=== PATIENT | female | born 1960 | race American Indian/Alaskan Native ===

== ENCOUNTER 2018-02-07 11:48 | Emergency (ER) | payer SELFPAY ==
[2018-02-07 12:07] VITALS: BP 155/94
--- NOTE | 2018-02-07 13:46 | Emergency Department Report ---
ED Rash HPI - HPI Chief Complaint: Skin Rash Stated Complaint: ALLERGIC REACTION Time Seen by Provider: 02/07/18 13:26 Duration: 3 Days Location: Lower Extremities (left foot) Suspected Cause: Unknown Rash Symptoms: Yes Itching, Yes Blistering, No Facial Swelling, No Tongue/Oral Swelling, No Breathing Difficulties, No Choking Sensation, No Wheezing/Dyspnea, No Peeling, No Fever, No Lightheaded, No Malaise, No Myalgias Other History: This is a 57-year-old [place] female who presents with blisters to left foot for 3 days. Patient admits to past history of similar symptoms and seen by ankle and foot doctor. No past medical history. 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 Patient does not remember name of tree. Patient states she has been wearing flip-flops and potentially infected left foot. Presently there are multiple blisters to left second through fifth toes with weeping. Patient states blisters started leaking 2 days ago. She has been soaking in iodine and green powder as advised by ankle and foot doctor. Patient states symptoms are getting worse. She denies fever, swelling, and numbness or tingling. ED Review of Systems ROS: Stated complaint: ALLERGIC REACTION Other details as noted in HPI Constitutional: denies: chills, fever Respiratory: denies: cough, shortness of breath, wheezing Cardiovascular: denies: chest pain, palpitations Gastrointestinal: denies: abdominal pain, nausea, diarrhea Skin: lesions (blisters to left foot). denies: rash Neurological: denies: headache, weakness, paresthesias Psychiatric: denies: anxiety, depression ED Past Medical Hx - Past Medical History Previous Medical History?: No - Surgical History Past Surgical History?: No - Social History Smoking Status: Current Some Day Smoker Substance Use Type: None, Alcohol - Medications Home Medications: Home Medications Medication Instructions Recorded Confirmed Last Taken Type Triamcinolone 0.1% [Kenalog 0.1% 1 applic TP TID 14 Days tube 03/15/15 Unknown Rx CREAM] Griseofulvin Ultramicrosize 250 mg PO BID #60 tablet 02/07/18 Unknown Rx [Silvia-Peg] Sulfamethoxazole/Trimethoprim 1 each PO BID #20 tablet 02/07/18 Unknown Rx [Bactrim DS TAB] Rash Exam - Exam General: Vital signs noted. No distress. Alert and acting appropriately. HEENT: No Periorbital Edema, No Conjuctival Injection, No Chemosis, No Perioral Edema, No Tongue Edema, No Uvular Edema, No Compromised Airway, No Drooling Lungs: Yes Good Air Exchange (Normal Breath Sounds), No Wheezes, No Ronchi, No Stridor, No Cough, No Labored Respirations, No Retractions, No Use of Accessory Muscles, No Other Abnormal Lung Sounds Heart: Yes Regular, No Murmur Skin: Yes Bulla(e) (1 cm bulla to distal second through fourth MTP, active clear discharge, tenderness, and swelling), Yes Weeping, Yes Tenderness, Yes Erythema, Yes Edema, No Urticarial Rash, No Maculopapular Rash, No Morbilliform rash, No Excoriations, No Encrustations ED Course Vital Signs 02/07/18 12:04 Temperature 98.7 F Pulse Rate 89 Respiratory 16 Rate Blood Pressure 155/94 O2 Sat by Pulse 98 Oximetry ED Medical Decision Making - Lab Data Result diagrams: 02/07/18 13:47 02/07/18 13:47 - Medical Decision Making Patient was examined by me. Vitals are normal and patient is in no acute distress. Obtained a CMP and CBC. All unremarkable. Patient informed of results. Start Bactrim DS and Silvia-peg for tinea pedis and cellulitis. Plan discussed with patient to discharge home and treat outpatient. Patient discharged home in stable condition. Follow up with ankle and document imaging specialist in 2-3 days. Critical care attestation.: If time is entered above; I have spent that time in minutes in the direct care of this critically ill patient, excluding procedure time. ED Disposition Clinical Impression: Cellulitis of toe of left foot, Tinea pedis of left foot Disposition: - TO HOME OR SELFCARE Is pt being admited?: No Does the pt Need Aspirin: No Condition: Stable Instructions: Tinea Pedis (ED), Cellulitis (ED) Additional Instructions: Complete full course of antibiotics as prescribed. Avoid drinking alcohol while taking antibiotics and for 24 hours after completion. Follow up with ankle and foot doctor for continuos of care in 3-5 days. Prescriptions: Griseofulvin Ultramicrosize [Silvia-Peg] 250 mg PO BID #60 tablet Sulfamethoxazole/Trimethoprim [Bactrim DS TAB] 1 each PO BID #20 tablet Referrals: [facility] [Provider Group] - 3-5 Days [facility] [Provider Group] - 3-5 Days Forms: Work/School Release Form(ED) Time of Disposition: 15:33 Print Language: GREEK
[2018-02-07 14:20] LABS: Hematocrit 36.7 % (30.3-42.9); Mean Corpuscular HGB Conc 33 % (30-34); Mean Corpuscular Volume 72 fl (79-97); Platelet Count 305 K/mm3 (140-440); Red Cell Distribution Width 14.8 % (13.2-15.2)
[2018-02-07 14:35] LABS: Mean Corpuscular Hemoglobin 23 pg (28-32)
[2018-02-07 14:37] LABS: Alanine Aminotransferase 15 units/L (7-56); Albumin 4.3 g/dL (3.9-5); BUN/Creatinine Ratio 30; Blood Urea Nitrogen 12 mg/dL (7-17); Calcium 9.3 mg/dL (8.4-10.2); Hemolysis Index 17
== END 2018-02-07 15:51 | disposition home or self-care (01) ==
LOC: ED 11:48
DX: L03.032 Cellulitis of left toe (principal); B35.3 Tinea pedis; F17.200 Nicotine dependence, unspecified, uncomplicated
CPT/HCPCS: 36415; 80053; 85027; 99283